=== PATIENT | female | born 1990 | race Caucasian/White ===

== ENCOUNTER 2018-03-05 05:28 | Inpatient (IN) | payer OTHER ==
[~2018-03-05] VITALS: Ht 162.6 cm; Wt 98.0 kg
[2018-03-05] MEDS ORDERED: SODIUM CITRATE/CITRIC ACID 30 ML UDC PO ONE (05:30)
[2018-03-05] MEDS ORDERED: LACTATED RINGERS 1,000 ML IVBOLUS ONE (05:30)
[2018-03-05] MEDS ORDERED: METOCLOPRAMIDE 5 MG/ML, 2ML IV ONE (05:30)
[2018-03-05] MEDS ORDERED: LACTATED RINGERS 1,000 ML IV SCH ×2 (05:30→11:30)
[2018-03-05] MEDS ORDERED: NEWBORN KIT ONE (05:38)
[2018-03-05] MEDS ORDERED: SODIUM CITRATE/CITRIC ACID 30 ML UDC ONE (05:38)
[2018-03-05] MEDS ORDERED: METOCLOPRAMIDE 5 MG/ML, 2ML ONE (05:38)
[2018-03-05] MEDS ORDERED: OXYTOCIN 30U/ 0.9% NaCL 500ML 500 ML ONE (05:38)
[2018-03-05 06:18] LABS: BASOPHILS # (AUTO) 0.03 x10^3/uL (0-0.1); BASOPHILS % (AUTO) 0 % (0-1); EOSINOPHILS # (AUTO) 0.06 x10^3/uL (0-0.4); EOSINOPHILS % (AUTO) 1 % (1-7); LYMPHOCYTES # (AUTO) 2.22 x10^3/uL (1-3.4); LYMPHOCYTES % (AUTO) 28 % (22-44); MD NO; MEAN CORPUSCULAR HEMOGLOBIN 27.9 pg (27.0-34.8); MEAN CORPUSCULAR HGB CONC 33.9 g/dL (32.4-35.8); MEAN CORPUSCULAR VOLUME 82.4 fL (80-100); MEAN PLATELET VOLUME 8.9 fL (7.4-10.4); MONOCYTES # (AUTO) 0.76 x10^3/uL (0.2-0.8); MONOCYTES % (AUTO) 10 % (2-9); NEUTROPHILS # (AUTO) 4.92 x10^3/uL (1.8-6.8); NEUTROPHILS % (AUTO) 62 % (42-75); PLATELET COUNT 174 x10^3/uL (130-400); RED BLOOD COUNT 3.98 x10^6/uL (3.82-5.3)
[2018-03-05] MEDS: OXYTOCIN 30U/ 0.9% NaCL 500ML 500 ML IV SCH ×3 (07:27→17:27)
[2018-03-05] MEDS: LACTATED RINGERS 1,000 ML IV SCH ×5 (07:27→23:27)
[2018-03-05] MEDS ORDERED: IBUPROFEN 600 MG TABLET PO PRN (07:30)
[2018-03-05] MEDS ORDERED: KETOROLAC 30 MG/1 ML IV PRN (07:30)
[2018-03-05] MEDS ORDERED: METOCLOPRAMIDE 5 MG/ML, 2ML IV PRN (07:30)
[2018-03-05] MEDS ORDERED: ONDANSETRON 2MG/ML, 2ML IV PRN ×2 (07:30→09:30)
[2018-03-05] MEDS ORDERED: ACETAMINOPHEN 325 MG TABLET PO PRN (07:30)
[2018-03-05] MEDS ORDERED: MISOPROSTOL 200 MCG TABLET PR PRN (07:30)
[2018-03-05] MEDS ORDERED: BISACODYL 10 MG SUPP PR PRN (07:30)
[2018-03-05] MEDS ORDERED: HYDROcodone/APAP 5/325 TABLET PO PRN (07:30)
[2018-03-05] MEDS ORDERED: KETOROLAC 30 MG/1 ML ONE ×2 (07:33)
[2018-03-05] MEDS ORDERED: OXYTOCIN 10 UNITS/ML, 1ML ONE (07:33)
[2018-03-05] MEDS ORDERED: GLYCOPYRROLATE 0.2MG/1ML, 5ML ONE ×2 (07:33)
[2018-03-05] MEDS ORDERED: EPHEDRINE 50 MG/ML, 1ML ONE ×2 (07:33)
[2018-03-05] MEDS ORDERED: CEFAZOLIN 1,000 MG ONE ×2 (07:33)
[2018-03-05] MEDS ORDERED: FENTANYL PF 100 MCG/2ML ONE (07:33)
[2018-03-05] MEDS: KETOROLAC 30 MG/1 ML IV SCH ×3 (08:30→20:25)
[2018-03-05] MEDS ORDERED: FENTANYL PF 100 MCG/2ML IV PRN (09:30)
[2018-03-05] MEDS ORDERED: EPHEDRINE 50 MG/ML, 1ML IVPush PRN (09:30)
[2018-03-05] MEDS ORDERED: PROMETHAZINE 25 MG/ML, 1ML IV PRN (09:30)
[2018-03-05] MEDS ORDERED: MEPERIDINE/PF 25MG/0.5ML IVPush PRN (09:30)
[2018-03-05] MEDS ORDERED: OXYcodone 5 MG/5 ML ORAL.SOL UDC PO PRN (09:30)
[2018-03-05] MEDS ORDERED: MORPHINE SULFATE 4 MG/ML, 1ML IVPush PRN (09:30)
[2018-03-05] MEDS ORDERED: OXYcodone 5 MG/5 ML ORAL.SOL UDC ONE (10:26)
[2018-03-05 10:40] VITALS: BP 107/71
[2018-03-05] MEDS: DOCUSATE 100 MG CAPSULE PO PRN (11:46)
[2018-03-05] MEDS: PRENATAL VIT/IRON/FA 1 EACH TABLET PO SCH (11:46)
[2018-03-05] MEDS: HYDROcodone/APAP 5/325 TABLET PO PRN ×2 (11:46→16:30)
[2018-03-05] MEDS ORDERED: MEPERIDINE/PF 50 MG/ML IVPush PRN (14:00)
[2018-03-05 16:16] LABS: MEAN CORPUSCULAR HEMOGLOBIN 27.7 pg (27.0-34.8); MEAN CORPUSCULAR HGB CONC 33.5 g/dL (32.4-35.8); MEAN CORPUSCULAR VOLUME 82.6 fL (80-100); PLATELET COUNT 175 x10^3/uL (130-400); RED BLOOD COUNT 4.11 x10^6/uL (3.82-5.3)
[2018-03-05 16:36] VITALS: BP 112/79
[2018-03-05 16:48] LABS: MD YES
[2018-03-05 16:50] LABS: BAND#(MANUAL) 0.57 x10^3/uL; BANDS%(MANUAL) 4 % (0-7); LYMPH#(MANUAL) 1.42 x10^3/uL (1-3.4); LYMPHS% (MANUAL) 10 % (22-44); MONOS#(MANUAL) 0.99 x10^3/uL (0.3-2.7); MONOS% (MANUAL) 7 % (2-9); SEG#(MANUAL) 11.22 x10^3/uL (1.8-6.8); SEGS% (MANUAL) 79 % (42-75)
[2018-03-05 16:51] LABS: <PLATELET ESTIMATE> ADEQUATE; <PLT MORPHOLOGY> NORMAL PLT MORPH; <RBC MORPHOLOGY> NORMAL
[2018-03-05 19:59] VITALS: BP 111/74
[2018-03-05 23:20] VITALS: BP 102/69
[2018-03-06] MEDS: HYDROcodone/APAP 5/325 TABLET PO PRN ×6 (01:13→23:26)
[2018-03-06] MEDS: KETOROLAC 30 MG/1 ML IV SCH ×4 (01:54→19:53)
[2018-03-06 02:48] VITALS: BP 103/71
[2018-03-06] MEDS: OXYTOCIN 30U/ 0.9% NaCL 500ML 500 ML IV SCH ×4 (03:27→23:27)
[2018-03-06] MEDS: LACTATED RINGERS 1,000 ML IV SCH ×6 (03:27→23:27)
[2018-03-06 06:55] VITALS: BP 98/67
[2018-03-06] MEDS: PRENATAL VIT/IRON/FA 1 EACH TABLET PO SCH (08:06)
[2018-03-06] MEDS: DOCUSATE 100 MG CAPSULE PO PRN ×2 (08:06→19:21)
[2018-03-06 12:30] VITALS: BP 101/69
[2018-03-06 19:30] VITALS: BP 113/76
[2018-03-07] MEDS: KETOROLAC 30 MG/1 ML IV SCH (01:52)
[2018-03-07] MEDS: HYDROcodone/APAP 5/325 TABLET PO PRN ×3 (04:35→14:09)
[2018-03-07] MEDS: LACTATED RINGERS 1,000 ML IV SCH ×3 (07:27→15:27)
[2018-03-07 07:57] VITALS: BP 111/67
[2018-03-07] MEDS: PRENATAL VIT/IRON/FA 1 EACH TABLET PO SCH (08:07)
[2018-03-07] MEDS: DOCUSATE 100 MG CAPSULE PO PRN (08:08)
[2018-03-07] MEDS: OXYTOCIN 30U/ 0.9% NaCL 500ML 500 ML IV SCH (09:27)
[2018-03-07] MEDS ORDERED: IBUP-1222 PO (13:27)
== END 2018-03-07 17:06 | disposition home or self-care (01) | DRG 765 ==
LOC: LDIP 05:28 → 2NW 11:10
PROVIDERS: ADMIT Obstetrics & Gynecology Female Pelvic Medicine and Reconstructive Surgery; ATTEND Obstetrics & Gynecology Female Pelvic Medicine and Reconstructive Surgery
PROC: 10D00Z1 Extraction of Products of Conception, Low, Open Approach (ICD-10-PCS; principal; 2018-03-05)
DX: O32.0XX0 Maternal care for unstable lie, not applicable or unspecified (principal); O36.5930 Maternal care for other known or suspected poor fetal growth, third trimester, not applicable or unspecified; Z37.0 Single live birth; Z3A.39 39 weeks gestation of pregnancy
CPT/HCPCS: 36415; J3490; 85025; 86850; 86900; J0690; J1885; J2175; J3010; J2590; J2765; J7120